=== PATIENT | male | born 1940 | race Caucasian/White ===

== ENCOUNTER → 2017-07-31 | Outpatient (REF) | payer BC, MEDICARE ==
[~2017-07-31] MED LIST: ASPI81TA83 OR; LEVOXYL25 MCG OR; LIPI80TA OR; PLAV75TA2 OR
== END ==
LOC: M LABDRAW1 11:48
PROVIDERS: ATTEND Nurse Practitioner
DX: N40.0 Benign prostatic hyperplasia without lower urinary tract symptoms (principal)

== ENCOUNTER → 2018-06-16 | Outpatient (CLI) | payer BC, MEDICARE ==
[2018-06-16 09:08] LABS: HEMATOCRIT 41.6 % (42.0-52.0); HEMOGLOBIN 14.5 g/dl (13.5-17.5); MEAN CORPUSCULAR HEMOGLOBIN 34.8 pg (27.0-33.0); MEAN CORPUSCULAR HGB CONC 34.9 g/dl (32.0-36.5); MEAN CORPUSCULAR VOLUME 99.8 fl (80.0-96.0); PLATELET COUNT, AUTOMATED 211 10^3/uL (150-450); RED BLOOD COUNT 4.17 10^6/uL (4.30-6.10); RED CELL DISTRIBUTION WIDTH 13.4 % (11.5-14.5); WHITE BLOOD COUNT 6.2 10^3/uL (4.0-10.0)
[2018-06-16 09:20] LABS: INR 0.94; PROTHROMBIN TIME 12.7 SECONDS (12.1-14.4)
[2018-06-16 09:31] LABS: ALBUMIN 3.6 GM/DL (3.2-5.2); ALBUMIN/GLOBULIN RATIO 1.24 (1.00-1.93); ALKALINE PHOSPHATASE 126 U/L (45-117); ALT/SGPT 33 U/L (12-78); ANION GAP 7 MEQ/L (8-16); AST/SGOT 19 U/L (7-37); BILIRUBIN,TOTAL 0.7 MG/DL (0.2-1.0); BLOOD UREA NITROGEN 17 MG/DL (7-18); CALCIUM LEVEL 8.7 MG/DL (8.8-10.2); CARBON DIOXIDE LEVEL 28 MEQ/L (21-32); CHLORIDE LEVEL 107 MEQ/L (98-107); CREATININE FOR GFR 1.11 MG/DL (0.70-1.30); GLOMERULAR FILTRATION RATE > 60.0 (>42); GLUCOSE, FASTING 103 MG/DL (70-100); POTASSIUM SERUM 4.2 MEQ/L (3.5-5.1); SODIUM LEVEL 142 MEQ/L (136-145); TOTAL PROTEIN 6.5 GM/DL (6.4-8.2)
[2018-06-16 09:36] LABS: ERYTHROCYTE SEDIMENTATION RATE 7 mm/hr (0-20)
== END ==
LOC: M LAB 08:13
DX: M17.11 Unilateral primary osteoarthritis, right knee (principal)
CPT/HCPCS: 71046

== ENCOUNTER 2018-06-30 05:49 | Inpatient (IN) | payer BC, MEDICARE ==
[2018-06-30] MEDS ORDERED: LR 1,000 ML IV (06:00)
[2018-06-30] MEDS ORDERED: MIDAZOLAM INJ 2 MG/2 ML VIAL (J2250) As Ordered ×2 (06:48→08:31)
[2018-06-30] MEDS ORDERED: fentaNYL 100 MCG/2 ML INJECTION (J3010) As Ordered ×2 (06:48→08:31)
[2018-06-30] MEDS: PREGABALIN 75 MG CAP(LYRICA) PO (06:50)
[2018-06-30] MEDS: PERCOCET 5MG/325MG TAB PO ×3 (06:50→17:35)
[2018-06-30] MEDS: BUPIVACAINE/EPIN 0.5% 30 ML VIAL As Ordered (07:14)
[2018-06-30] MEDS: fentaNYL 100 MCG/2 ML INJECTION (J3010) IV ×5 (07:15→11:10)
[2018-06-30] MEDS: MIDAZOLAM INJ 2 MG/2 ML VIAL (J2250) IV (07:15)
[2018-06-30] MEDS: BUPIVACAINE/EPIN 0.25% 30 ML VIAL As Ordered (08:11)
[2018-06-30] MEDS ORDERED: PROPOFOL 500 MG/50 ML VIAL As Ordered (08:31)
[2018-06-30] MEDS ORDERED: ePHEDrine SULFATE 25 MG/5 ML(5MG/ML) SYRINGE As Ordered ×2 (08:31→08:40)
[2018-06-30] MEDS ORDERED: LIDOCAINE 2% INJ 100 MG/5 ML SDV (FOR ANES.) As Ordered (08:31)
[2018-06-30] MEDS ORDERED: BUPIVACAINE/DEXTROSE 0.75% 2 ML AMP As Ordered (08:31)
[2018-06-30] MEDS ORDERED: ONDANSETRON 4MG/2ML VIAL (J2405) As Ordered (08:31)
[2018-06-30] MEDS: ceFAZolin 1GM INJ (J0690 PER 500MG) As Ordered (08:34)
[2018-06-30] MEDS: EPINEPHrine INJ 1 MG/ML 1ML AMP As Ordered (09:21)
[2018-06-30] MEDS: TRANEXAMIC ACID 100 MG/ML 10ML VIAL As Ordered (09:22)
[2018-06-30] MEDS: BUPIVACAINE LIPOSOME/PF 1.3% 20 ML VIAL (13.3MG/ML)(EXPAREL) As Ordered (09:23)
[2018-06-30] MEDS ORDERED: dexameTHASONE 10 MG/1 ML VIAL PRES.FREE (J1100) (09:47)
[2018-06-30] MEDS ORDERED: ROPIvacaine 0.5% 30 ML INJECTION (J2795 PER 1MG) (09:47)
[2018-06-30] MEDS ORDERED: EPINEPHrine INJ 1 MG/ML 1ML AMP (09:47)
[2018-06-30] MEDS: LR 1,000 ML IV (10:07)
[2018-06-30] MEDS ORDERED: HYDROMORPHONE HCL 0.5 MG/ 0.5 ML SYRINGE (J1170 PER 1) IV ×2 (10:30)
[2018-06-30] MEDS ORDERED: PERCOCET 5MG/325MG TAB PO ×2 (10:30→12:15)
[2018-06-30] MEDS: MORPHINE 10 MG/ML 1ML VIAL (J2270) IV ×5 (10:35→10:55)
[2018-06-30] MEDS ORDERED: FLEET ENEMA PR (11:00)
[2018-06-30] MEDS ORDERED: ONDANSETRON 4MG/2ML VIAL (J2405) IV (12:15)
[2018-06-30] MEDS: D5W/LR 1,000 ML IV (13:30)
[2018-06-30] MEDS: ALLOPURINOL 100 MG TAB PO (15:55)
[2018-06-30] MEDS: amLODIPine 5 MG TAB PO ×2 (15:57→15:58)
[2018-06-30] MEDS: ceFAZolin SOD 1 GM in D5W MINI-BAG PLUS 50 ML IV (16:51)
[2018-06-30] MEDS: ONDANSETRON 4MG/2ML VIAL (J2405) IV (17:08)
[2018-07-01] MEDS: ceFAZolin SOD 1 GM in D5W MINI-BAG PLUS 50 ML IV (01:09)
[2018-07-01] MEDS: D5W/LR 1,000 ML IV (01:59)
[2018-07-01 05:59] LABS: HEMATOCRIT 35.9 % (42.0-52.0); HEMOGLOBIN 11.8 g/dl (13.5-17.5); MEAN CORPUSCULAR HEMOGLOBIN 33.8 pg (27.0-33.0); MEAN CORPUSCULAR HGB CONC 32.9 g/dl (32.0-36.5); MEAN CORPUSCULAR VOLUME 102.9 fl (80.0-96.0); PLATELET COUNT, AUTOMATED 182 10^3/uL (150-450); RED BLOOD COUNT 3.49 10^6/uL (4.30-6.10); RED CELL DISTRIBUTION WIDTH 13.3 % (11.5-14.5); WHITE BLOOD COUNT 10.4 10^3/uL (4.0-10.0)
[2018-07-01] MEDS: LEVOTHYROXINE 137MCG TABLET (0.137MG) PO (06:05)
[2018-07-01 06:08] LABS: ANION GAP 10 MEQ/L (8-16); BLOOD UREA NITROGEN 14 MG/DL (7-18); CALCIUM LEVEL 8.1 MG/DL (8.8-10.2); CARBON DIOXIDE LEVEL 27 MEQ/L (21-32); CHLORIDE LEVEL 105 MEQ/L (98-107); CREATININE FOR GFR 0.97 MG/DL (0.70-1.30); GLOMERULAR FILTRATION RATE > 60.0 (>42); GLUCOSE, FASTING 148 MG/DL (70-100); POTASSIUM SERUM 4.3 MEQ/L (3.5-5.1); SODIUM LEVEL 142 MEQ/L (136-145)
[2018-07-01 06:10] LABS: INR 1.07
[2018-07-01] MEDS: ALLOPURINOL 100 MG TAB PO (08:46)
[2018-07-01] MEDS: MIRALAX *UNIT DOSE* 17GM PACKET PO (08:47)
[2018-07-01] MEDS: MOM 30ML SUSPENSION UDC PO (08:47)
[2018-07-01] MEDS: CLOPIDOGREL 75 MG TAB PO (08:47)
[2018-07-01] MEDS: amLODIPine 5 MG TAB PO (08:47)
[2018-07-01] MEDS: SENOKOT S TAB PO ×2 (08:47→20:56)
[2018-07-01] MEDS: ASPIRIN 81 MG ENTERIC TAB PO (08:47)
[2018-07-01] MEDS: PERCOCET 5MG/325MG TAB PO ×4 (08:47→22:20)
[2018-07-02] MEDS: LEVOTHYROXINE 137MCG TABLET (0.137MG) PO (05:18)
[2018-07-02] MEDS: PERCOCET 5MG/325MG TAB PO ×3 (05:19→15:22)
[2018-07-02 06:52] LABS: HEMATOCRIT 31.2 % (42.0-52.0); MEAN CORPUSCULAR HEMOGLOBIN 35.7 pg (27.0-33.0); MEAN CORPUSCULAR HGB CONC 35.3 g/dl (32.0-36.5); MEAN CORPUSCULAR VOLUME 101.3 fl (80.0-96.0); PLATELET COUNT, AUTOMATED 154 10^3/uL (150-450); RED BLOOD COUNT 3.08 10^6/uL (4.30-6.10); RED CELL DISTRIBUTION WIDTH 13.7 % (11.5-14.5); WHITE BLOOD COUNT 8.9 10^3/uL (4.0-10.0)
[2018-07-02 07:05] LABS: INR 1.08; PROTHROMBIN TIME 14.1 SECONDS (12.1-14.4)
[2018-07-02 07:06] LABS: ANION GAP 8 MEQ/L (8-16); BLOOD UREA NITROGEN 14 MG/DL (7-18); CALCIUM LEVEL 8.1 MG/DL (8.8-10.2); CARBON DIOXIDE LEVEL 28 MEQ/L (21-32); CHLORIDE LEVEL 105 MEQ/L (98-107); CREATININE FOR GFR 0.91 MG/DL (0.70-1.30); GLOMERULAR FILTRATION RATE > 60.0 (>42); GLUCOSE, FASTING 120 MG/DL (70-100); POTASSIUM SERUM 3.8 MEQ/L (3.5-5.1); SODIUM LEVEL 141 MEQ/L (136-145)
[2018-07-02] MEDS: CelecoXIB (CeleBREX) 100 MG CAP PO (08:34)
[2018-07-02] MEDS: MOM 30ML SUSPENSION UDC PO ×2 (09:00→09:53)
[2018-07-02] MEDS: MIRALAX *UNIT DOSE* 17GM PACKET PO (09:52)
[2018-07-02] MEDS: ASPIRIN 81 MG ENTERIC TAB PO (09:53)
[2018-07-02] MEDS: CLOPIDOGREL 75 MG TAB PO (09:53)
[2018-07-02] MEDS: SENOKOT S TAB PO (09:53)
[2018-07-02] MEDS: ALLOPURINOL 100 MG TAB PO (09:55)
[2018-07-02] MEDS: amLODIPine 5 MG TAB PO (09:55)
[2018-07-02] MEDS: ACETAMINOPHEN TAB 650MG DOSE (2X325MG) PO (09:57)
== END 2018-07-02 15:35 | disposition home or self-care (01) | DRG 302 ==
LOC: M OR 05:49 → M MS5PR 13:35
PROC: 0SRC069 Replacement of Right Knee Joint with Oxidized Zirconium on Polyethylene Synthetic Substitute, Cemented, Open Approach (ICD-10-PCS; principal; 2018-06-30 07:30)
DX: M17.11 Unilateral primary osteoarthritis, right knee (principal); I10 Essential (primary) hypertension; E03.9 Hypothyroidism, unspecified; I25.10 Atherosclerotic heart disease of native coronary artery without angina pectoris; E78.5 Hyperlipidemia, unspecified; M10.9 Gout, unspecified; E78.00 Pure hypercholesterolemia, unspecified; Z79.82 Long term (current) use of aspirin; Z79.02 Long term (current) use of antithrombotics/antiplatelets; Z79.899 Other long term (current) drug therapy; Z88.8 Allergy status to other drugs, medicaments and biological substances

== ENCOUNTER → 2018-08-26 | Outpatient (REF) | payer BC, MEDICARE ==
[2018-08-26 11:16] LABS: PROSTATIC SPECIFIC AG MONITOR 1.59 NG/ML (< 4.0)
== END ==
LOC: M LABDRAW1 10:37
DX: N40.0 Benign prostatic hyperplasia without lower urinary tract symptoms (principal)
CPT/HCPCS: 84153

== ENCOUNTER → 2019-03-18 | Outpatient (REF) | payer MEDICARE ==
[~2019-03-18] MED LIST changes: +ALLO100T PO; +AMLO5TAB6 PO; +CLOP75TA2 PO; +LEVO137T2 PO; +PERC5TAB12 PO; +XARE10TA PO
[2019-03-18 16:27] LABS: BASO % 0.8 % (0.0-1.0); EOS # 0.2 10^3/uL (0.0-0.50); EOS % 3.8 % (0.0-3.0); HEMATOCRIT 39.1 % (42.0-52.0); HEMOGLOBIN 13.1 g/dl (13.5-17.5); LYMPH # 1.6 10^3/uL (1.5-4.5); LYMPH % 29.9 % (24.0-44.0); MEAN CORPUSCULAR HEMOGLOBIN 33.6 pg (27.0-33.0); MEAN CORPUSCULAR HGB CONC 33.5 g/dl (32.0-36.5); MEAN CORPUSCULAR VOLUME 100.3 fl (80.0-96.0); MONO # 0.5 10^3/uL (0.0-0.8); MONO % 9.5 % (0.0-5.0); NEUTROPHILS % 55.6 % (36.0-66.0); PLATELET COUNT, AUTOMATED 217 10^3/uL (150-450); WHITE BLOOD COUNT 5.3 10^3/uL (4.0-10.0)
[2019-03-18 17:32] LABS: ERYTHROCYTE SEDIMENTATION RATE 13 mm/hr (0-20)
== END ==
LOC: M LABDRAW1 15:48
PROVIDERS: ATTEND Physician Assistant
DX: Z47.1 Aftercare following joint replacement surgery (principal)

== ENCOUNTER → 2020-08-08 | Outpatient (REF) | payer MEDICARE ==
[~2020-08-08] MED LIST changes: +AMLO1TAB24 PO; -AMLO5TAB6 PO
== END ==
LOC: M LAB REF 17:19
PROVIDERS: ATTEND Dermatology
DX: L82.1 Other seborrheic keratosis (principal)
CPT/HCPCS: 11102; 88305; G0463

== ENCOUNTER → 2021-02-09 | Outpatient (REF) | payer MEDICARE | LOC: M LAB REF 17:24 | PROVIDERS: ATTEND Dermatology | DX: C44.519 Basal cell carcinoma of skin of other part of trunk (principal) | CPT/HCPCS: 11102; 11103; 88305; G0463 ==

== ENCOUNTER → 2022-03-13 | Outpatient (CLI) | payer MEDICARE | LOC: M WUC 09:03 | PROVIDERS: ATTEND Internal Medicine | DX: R06.02 Shortness of breath (principal) ==

== ENCOUNTER → 2023-04-09 | Outpatient (REF) | payer MEDICARE ==
[2023-04-09 21:40] LABS: APPEARANCE, URINE CLEAR (CLEAR); BACTERIA, URINE AUTO NEGATIVE (NEGATIVE); BILIRUBIN, URINE AUTO NEGATIVE (NEGATIVE); BLOOD, URINE BLOOD NEGATIVE (NEGATIVE); COLOR, URINE YELLOW (YELLOW); GLUCOSE, URINE (UA) AUTO NEGATIVE (NEGATIVE); KETONE, URINE AUTO NEGATIVE (NEGATIVE); LEUKOCYTE ESTERASE, URINE AUTO NEGATIVE (NEGATIVE); MUCUS, URINE SMALL (NEGATIVE); NITRITE, URINE AUTO NEGATIVE (NEGATIVE); PROTEIN, URINE AUTO NEGATIVE (NEGATIVE); RBC, URINE AUTO 1 /HPF (0-3); SPECIFIC GRAVITY URINE AUTO 1.021 (1.002-1.035); SQUAMOUS EPITHELIAL CELL UR AU 0 /HPF (0-6); WBC, URINE AUTO 0 /HPF (0-3)
== END ==
LOC: M LAB REF 21:17
PROVIDERS: ATTEND Physician Assistant
DX: N39.0 Urinary tract infection, site not specified (principal)

== ENCOUNTER → 2023-05-01 | Outpatient (REF) | payer MEDICARE ==
[2023-05-01 17:03] LABS: APPEARANCE, URINE CLEAR (CLEAR); BACTERIA, URINE AUTO NEGATIVE (NEGATIVE); BILIRUBIN, URINE AUTO NEGATIVE (NEGATIVE); BLOOD, URINE BLOOD NEGATIVE (NEGATIVE); COLOR, URINE YELLOW (YELLOW); GLUCOSE, URINE (UA) AUTO NEGATIVE (NEGATIVE); KETONE, URINE AUTO NEGATIVE (NEGATIVE); LEUKOCYTE ESTERASE, URINE AUTO NEGATIVE (NEGATIVE); MUCUS, URINE SMALL (NEGATIVE); NITRITE, URINE AUTO NEGATIVE (NEGATIVE); PROTEIN, URINE AUTO NEGATIVE (NEGATIVE); RBC, URINE AUTO 0 /HPF (0-3); SPECIFIC GRAVITY URINE AUTO 1.017 (1.002-1.035); SQUAMOUS EPITHELIAL CELL UR AU 0 /HPF (0-6); WBC, URINE AUTO 0 /HPF (0-3)
== END ==
LOC: M LAB REF 16:23
PROVIDERS: ATTEND Internal Medicine
DX: M17.0 Bilateral primary osteoarthritis of knee (principal); N39.0 Urinary tract infection, site not specified; M10.9 Gout, unspecified

== ENCOUNTER → 2023-11-19 | Outpatient (REF) | payer MEDICARE | LOC: M SFHCDERM 16:03 | PROVIDERS: ATTEND Nurse Practitioner Family | DX: D04.39 Carcinoma in situ of skin of other parts of face (principal); L57.8 Other skin changes due to chronic exposure to nonionizing radiation; L57.0 Actinic keratosis ==

== ENCOUNTER → 2024-04-07 | Outpatient (CLI) | payer MEDICARE | LOC: M PLAIMG 15:36 | PROVIDERS: ATTEND Physician Assistant Surgical | DX: M47.22 Other spondylosis with radiculopathy, cervical region (principal) ==

== ENCOUNTER 2024-04-28 10:49 | Emergency (ER) | payer MEDICARE ==
[~2024-04-28] VITALS: Ht 172.7 cm; Wt 101.9 kg
[2024-04-28] MEDS ORDERED: LEVO150T7 (11:06)
[2024-04-28] MEDS ORDERED: TRAM50TA2 (11:06)
[2024-04-28] MEDS ORDERED: METH4PACK (11:06)
[2024-04-28 11:52] LABS: HEMATOCRIT 42.8 % (42.0-52.0); MEAN CORPUSCULAR HEMOGLOBIN 34.6 pg (27.0-33.0); MEAN CORPUSCULAR VOLUME 98.6 fl (80.0-96.0); PLATELET COUNT, AUTOMATED 275 10^3/uL (150-450); RED BLOOD COUNT 4.34 10^6/uL (4.30-6.10); WHITE BLOOD COUNT 13.3 10^3/uL (4.0-10.0)
[2024-04-28 12:24] LABS: BLOOD UREA NITROGEN 19 MG/DL (9-23); CALCIUM LEVEL 9.4 MG/DL (8.3-10.6); CARBON DIOXIDE LEVEL 26 MMOL/L (20-31); CHLORIDE LEVEL 105 MMOL/L (98-107); CREATININE FOR GFR 0.86 MG/DL (0.70-1.30); GLOMERULAR FILTRATION RATE > 60.0 (>35); GLUCOSE, FASTING 136 MG/DL (74-106); SODIUM LEVEL 138 MMOL/L (136-145)
[2024-04-28 14:00] VITALS: BP 150/72; TEMP 96.7; O2SAT 96
== END 2024-04-28 14:14 | disposition home or self-care (01) ==
LOC: M ED 10:49
DX: R23.2 Flushing (principal); Z79.899 Other long term (current) drug therapy

== ENCOUNTER → 2024-05-11 | Outpatient (CLI) | payer MEDICARE ==
[~2024-05-11] MED LIST changes: +LEVO150T7; +METH4PACK; +TRAM50TA2
[2024-05-11 15:28] LABS: PLATELET COUNT, AUTOMATED 233 10^3/uL (150-450)
[2024-05-11 15:51] LABS: INR 1.02; PARTIAL THROMBOPLASTIN TIME 27.3 SECONDS (24.8-34.2); PROTHROMBIN TIME 13.1 SECONDS (12.5-14.5)
== END ==
LOC: M PLALAB 13:34
PROVIDERS: ATTEND Physician Assistant Surgical
DX: Z01.812 Encounter for preprocedural laboratory examination (principal); Z79.01 Long term (current) use of anticoagulants

== ENCOUNTER → 2024-11-16 | Outpatient (CLI) | payer MEDICARE | LOC: M RAD 09:29 | PROVIDERS: ATTEND Internal Medicine | DX: K76.0 Fatty (change of) liver, not elsewhere classified (principal) ==

== ENCOUNTER → 2024-12-30 | Outpatient (REF) | payer MEDICARE | LOC: M SFHCDERM 13:15 | PROVIDERS: ATTEND Nurse Practitioner Family | DX: D04.39 Carcinoma in situ of skin of other parts of face (principal) ==

== ENCOUNTER 2025-02-03 09:24 | Day surgery (SDC) | payer MEDICARE ==
[~2025-02-03] VITALS: Ht 177.8 cm; Wt 104.3 kg
[2025-02-03] MEDS: CEFUROXIME 1MG/0.1ML INTRACAMERAL INJ As Ordered ONE (07:44)
[~2025-02-03 09:24] MED LIST changes: +ATOR80TA59 PO; +CYCLOPENTOLATE 1% OPHTH SOLN 2ML BTL OS SCH; +LIDOCAINE 3.5 % 1ML OPHTH TOPICAL GEL OU ONE; +MIDAZOLAM INJ 2MG/2ML VIAL As Ordered ONE; +OFLOXACIN 0.3 % (OCUFLOX) OPTH SOL 5ML OS ONE; +PHENYLEPHRINE 10% OPHTH SOL 5ML OS PRN; +PHENYLEPHRINE 2.5% OPHTH SOL 2ML OS SCH; +TROPICAMIDE 1% OPHTH SOLN 15ML OS SCH; +fentaNYL 100 MCG/2 ML INJECTION As Ordered ONE
[2025-02-03] MEDS: CYCLOPENTOLATE 1% OPHTH SOLN 2ML BTL OS SCH (10:02)
[2025-02-03] MEDS: LIDOCAINE 3.5 % 1ML OPHTH TOPICAL GEL OU ONE (10:02)
[2025-02-03] MEDS: PHENYLEPHRINE 2.5% OPHTH SOL 2ML OS SCH (10:03)
[2025-02-03] MEDS: TROPICAMIDE 1% OPHTH SOLN 15ML OS SCH (10:03)
[2025-02-03] MEDS: OFLOXACIN 0.3 % (OCUFLOX) OPTH SOL 5ML OS ONE (10:03)
[2025-02-03] MEDS: LIDOCAINE 1% SDV 5ML VIAL As Ordered ONE (10:55)
[2025-02-03] MEDS: BSS IRRIG/VANCO(10MG)/TOBRA(5MG)/EPINEPH(1:1000-0.5CC)500ML BAG-ORONLY As Ordered ONE (10:55)
[2025-02-03 11:11] VITALS: BP 132/78; TEMP 98.1; O2SAT 99
== END 2025-02-03 11:29 | disposition home or self-care (01) ==
LOC: M SDC 09:24
PROVIDERS: ATTEND Ophthalmology
DX: H25.12 Age-related nuclear cataract, left eye (principal); I10 Essential (primary) hypertension; I25.10 Atherosclerotic heart disease of native coronary artery without angina pectoris; E03.9 Hypothyroidism, unspecified; E78.00 Pure hypercholesterolemia, unspecified; I25.2 Old myocardial infarction; M10.9 Gout, unspecified; Z79.899 Other long term (current) drug therapy; Z79.02 Long term (current) use of antithrombotics/antiplatelets; Z79.890 Hormone replacement therapy; Z95.5 Presence of coronary angioplasty implant and graft
CPT/HCPCS: 66984; J0697; J2250; J3010; V2632